=== PATIENT | male | born 1980 | race Caucasian/White ===

== ENCOUNTER 2020-08-31 12:53 | Emergency (ER) | payer BC ==
[2020-08-31] MEDS ORDERED: DECADRON6 MG PO (16:37)
== END 2020-08-31 16:44 | disposition home or self-care (01) ==
LOC: ER1 12:53
DX: U07.1 COVID-19 (principal)
CPT/HCPCS: 71045; 99283

== ENCOUNTER → 2022-02-01 | Outpatient (CLI) | payer OTHER ==
[~2022-02-01] MED LIST: DECADRON6 MG PO
== END ==
LOC: LAB 12:03
DX: Z01.82 Encounter for allergy testing (principal)
CPT/HCPCS: 36415; 82785; 86008